=== PATIENT | female | born 1975 | race Caucasian/White ===

== ENCOUNTER 2017-10-11 16:57 | Observation (INO) | payer BC, SELFPAY | END 2017-10-12 15:03 | disposition home or self-care (01) | PROVIDERS: Admitting Provider Family Medicine; Emergency Provider Emergency Medicine; Family Provider Nurse Practitioner Family; Visit Provider Family Medicine | DX: A02.0 Salmonella enteritis (principal); R19.7 Diarrhea, unspecified | CPT/HCPCS: 36415; 74176; 80048; 80053; 83690; 85025; 87507; 94640; 96365; 96375; 96376; 99285; G0378; J1956; J2405 ==

== ENCOUNTER 2018-01-07 11:27 | Day surgery (SDC) | payer BC, SELFPAY ==
[2018-01-01 13:53] VITALS: BMI 34.9
[2018-01-07] VITALS (7 sets, daily range): BP systolic 94–120; BP diastolic 50–76; PULSE 71–77; RESP 18; TEMP 36.2–36.6; O2SAT 96–100
[2018-01-07 12:42] LABS: Urine Pregnancy, HCG Qual. Negative (Negative)
--- NOTE | 2018-01-07 14:30 | P.PCN_ITS ---
[facility] Procedure Note Procedure Note:: Colonoscopy Procedure Report: Colonoscopy with cold snare polypectomy Endoscopist: Jef Blackman II, MD Referring physician: Kita ALDRICH Date of Procedure: January 07, 2018 Equipment: Olympus 180 variable stiffness pediatric colonoscope Sedation: MAC sedation Indication: Mrs. Bautista is a 42-year-old female who is here for diagnostic colonoscopy secondary to presumed colitis. The patient did have a spell of colitis prior to gi and was found to have salmonella which was treated. She did have another spell 2 or 3 weeks ago. This was associated with cramps and mucus. She reports no bright red rectal bleeding, weight loss or family history of colitis or Crohn's disease. She reports no family history of colon cancer. Procedure: Prior to the procedure, a history and physical exam was performed, and patient' s medications and allergies were reviewed. The risks, benefits and alternatives of the sedation and procedure were discussed with the patient. All questions were answered and informed consent was obtained. The patient was brought to the procedure room. Patient identification and proposed procedure were verified by the physician and the nurse. The patient was placed in a left lateral decubitus position and the scope was passed under direct vision. Throughout the procedure, the patient's blood pressure, pulse, and oxygen saturations were monitored continuously. The colonoscopy was accomplished without difficulty. The patient tolerated the procedure well. Findings: On digital rectal examination there was normal rectal tone. There were no external hemorrhoids. The colonoscope was introduced through the anal canal to the rectum and advanced to the cecum. The ileocecal valve and appendiceal orifice were identified. The scope was advanced a short distance into the ileum which appeared grossly normal. The scope was then withdrawn into the colon. The cecum, ascending and transverse colon and mucosa were grossly normal. There were scattered diverticuli throughout the descending and sigmoid colon (LEFT colon). There was a diminutive polyp in the sigmoid colon that was 5 mm and removed via cold snare polypectomy. The rectum itself was normal. Upon retroflexion within the rectum there were grade 1 internal hemorrhoids. Impression: 1. Diminutive sigmoid polyp 2. Left-sided diverticulosis 3. Grade 1 internal hemorrhoids Plan: I do feel that the patient is having spells of low-grade diverticulitis/spastic diverticular disease. We will discuss dietary measures and fiber bowel regimen. I will follow-up the polyp histology. If the polyp is non-adenomatous, she will not require screening/surveillance colonoscopy again for 10 years (age 52) by ACS guidelines.
--- NOTE | 2018-01-07 16:50 | HMH.ANESCL ---
[facility] Anesthesia Checklist - Patient Identification Patient Identification: Arm Band - Structural Data Admitted From: Home Planned Operative Procedure/s: colonoscopy Consent for Planned Operative Procedure(s) Verified: Yes Verified Documents: Surgical Consent, History and Physical - NPO Status Verified Time NPO: 00:00 - Additional verifications Anesthesia Reactions: No - Airway Assessment C-Spine Mobility Assessed: Yes (mp2) TMJ Mobility Assessed: Yes Dentition: Good Dentition - Neurological Assessment Level of Consciousness: Awake, Alert - Anesthesia Plan Anesthesia Risk discussed: Yes Anesthesia Plan: Verified ASA Class: II Anesthesia Type: MAC [facility] Anesthesia HX I have reviewed the patient's past medical history: Yes Medical History: Denies:: Diabetes Mellitus Type 1, Diabetes Mellitus Type 2, Internal Pacemaker, Lung Disease, Seizures Other Medical History: Reports: Other (colitis, left kidney adenoma) Laterality Cases: Bilateral: Carpal Tunnel Release Other Surgeries: Yes: Other (oneyda, btl, right wrist sx). No: Pacemaker
== END 2018-01-07 15:15 | disposition home or self-care (01) ==
PROVIDERS: Family Provider Nurse Practitioner Family; PCP Nurse Practitioner Family; Visit Provider Internal Medicine Gastroenterology
PROC: 0DJD8ZZ Inspection of Lower Intestinal Tract, Via Natural or Artificial Opening Endoscopic (ICD-10-PCS; CPT 45378; principal; 2018-01-07 13:00)
DX: K63.5 Polyp of colon (principal); K57.30 Diverticulosis of large intestine without perforation or abscess without bleeding; K64.0 First degree hemorrhoids
CPT/HCPCS: 45380; 81025

== ENCOUNTER → 2019-11-12 15:15 | Outpatient (CLI) | payer BC, SELFPAY ==
--- NOTE | 2019-11-12 15:20 | XR_ITS ---
PROCEDURE: XR ACUTE ABDOMEN SERIES CLINICAL INDICATION: ABD TENDERNESS COMPARISON: CXRCHP CHEST-AP LAT- [facility] ONLY from 06/08/2015 FINDINGS: There is no acute cardiopulmonary pathology. Postsurgical clips from cholecystectomy are noted. There is a nonspecific gas pattern. There is no free air. Radiopacities in the pelvis may represent bilateral tubal ligation. Left pelvic calcifications likely phleboliths are noted. IMPRESSION: No acute findings. Nonspecific gas pattern. Dictated by: Osman George 11/12/2019 16:15 Electronically signed by Osman George in [facility] 11/12/2019 16:15
== END ==
PROVIDERS: PCP Nurse Practitioner; Visit Provider Nurse Practitioner
DX: R10.819 Abdominal tenderness, unspecified site (principal); Z12.31 Encounter for screening mammogram for malignant neoplasm of breast
CPT/HCPCS: 74021

== ENCOUNTER → 2019-11-27 16:07 | Outpatient (CLI) | payer BC, SELFPAY ==
--- NOTE | 2019-11-27 16:11 | MM_ITS ---
PROCEDURE: MM DIG SCREENING MAMM BI W/CAD CLINICAL INDICATION: SCREENING There is no personal or family history of breast cancer. There has been a previous biopsy left breast for benign disease. COMPARISON: DMDBAV DIG MAMM-DX EROS W/AVWS W/CAD from 02/13/2017 TECHNIQUE: Standard CC and MLO images and 3D Tomosynthesis was obtained. R2 CAD reviewed. FINDINGS: Scattered diffuse fibroglandular densities are seen throughout both breasts. The findings are fairly symmetrical bilaterally., images are helpful in excluding any suspicious abnormality. There are no suspicious microcalcifications. IMPRESSION: Moderate breast density with no suspicious lesions seen BI-RAD Category: 1 Negative FOLLOW-UP: 1YR 1 Year Follow-up (A letter has been sent to the patient regarding results of the study.) Dictated by: Dr. Ronal Mary MD 12/01/2019 09:[address] Ronal Mary MD in [facility] 12/01/2019 09:31
== END ==
PROVIDERS: PCP Nurse Practitioner; Visit Provider Nurse Practitioner
DX: Z12.31 Encounter for screening mammogram for malignant neoplasm of breast (principal)
CPT/HCPCS: 77063; 77067

== ENCOUNTER → 2019-12-01 14:56 | Outpatient (POV) | payer BC, SELFPAY | PROVIDERS: Visit Provider Nurse Practitioner Family | DX: Z00.00 Encounter for general adult medical examination without abnormal findings (principal) ==

== ENCOUNTER → 2020-05-25 14:09 | Outpatient (CLI) | payer BC, SELFPAY ==
--- NOTE | 2020-05-25 14:14 | XR_ITS ---
PROCEDURE: XR SHOULDER RT MIN 2V CLINICAL INDICATION: R SHOULDER PAIN COMPARISON: No exams were available for comparison FINDINGS: No fracture or dislocation. No lytic or blastic change. There is normal mineralization. The joint spaces are well-preserved. No significant degenerative/arthritic changes. No erosive changes evident. Other findings:None. IMPRESSION: No acute findings. Dictated b James Oh MD 05/25/2020 14:36 James Oh MD in [facility] 05/25/2020 14:36
== END ==
PROVIDERS: PCP Nurse Practitioner Family; Visit Provider Nurse Practitioner Family
DX: M25.511 Pain in right shoulder (principal)
CPT/HCPCS: 73030

== ENCOUNTER 2020-06-21 16:00 | Outpatient (RCR) | payer BC, SELFPAY | END 2020-07-22 15:21 | disposition home or self-care (01) | LOC: PT.CARL 16:00 | PROVIDERS: PCP Nurse Practitioner Family; Visit Provider Nurse Practitioner Family | DX: M25.511 Pain in right shoulder (principal) | CPT/HCPCS: 97010; 97012; 97014; 97035; 97110; 97140; 97163; G0283 ==

== ENCOUNTER → 2020-06-23 14:42 | Outpatient (CLI) | payer BC, SELFPAY ==
--- NOTE | 2020-06-23 15:11 | MR_ITS ---
PROCEDURE: MR SHOULDER RT WO CON CLINICAL INDICATION: PAIN IN RIGHT SHOULDER RT SHOULDER PAIN, NO INJURY, PAIN WHEN ARISING ARM ABOVE HEAD, WEAKNESS IN ARM. SYMPTOMS X4-5 MONTHS. PRIOR XRAY 05-25-20 COMPARISON: CR XR SHOULDER RT MIN 2V from 05/25/2020 TECHNIQUE: Routine multiplanar multi echo sequences are performed without gadolinium enhancement. FINDINGS: There are mild hypertrophic changes of the acromioclavicular joint with mild edema at the AC joint. The supraspinatus, infraspinatus, teres minor and subscapularis tendons have an unremarkable appearance. No obvious labral tear. The bicipital tendon is in place. No significant subacromial stenosis evident IMPRESSION: 1. No evidence of rotator cuff tear. 2. Osteoarthritic changes with hypertrophy of the acromioclavicular joint Dictated by: James Oh MD 06/24/2020 17:20 James Oh MD in [facility] 06/24/2020 17:20
== END ==
PROVIDERS: PCP Nurse Practitioner Family; Visit Provider Nurse Practitioner Family
DX: M25.511 Pain in right shoulder (principal)
CPT/HCPCS: 73221

== ENCOUNTER → 2020-07-27 08:23 | Outpatient (CLI) | payer BC, SELFPAY ==
--- NOTE | 2020-07-27 08:26 | XR_ITS ---
PROCEDURE: XR SHOULDER RT MIN 2V CLINICAL INDICATION: right shoulder pain COMPARISON: CR XR SHOULDER RT MIN 2V from 05/25/2020 FINDINGS: No fracture or dislocation. No lytic or blastic change. There is normal mineralization. There is minimal spurring along the undersurface of the acromioclavicular joint. The glenohumeral joint has an unremarkable appearance. No fracture or dislocation. No lytic or blastic change. Other findings:None. IMPRESSION: Minimal acromioclavicular arthropathy Dictated by: James Oh MD 07/27/2020 14:25 James Oh MD in [facility] 07/27/2020 14:25
== END ==
PROVIDERS: PCP Nurse Practitioner Family; Visit Provider Orthopaedic Surgery
DX: M25.511 Pain in right shoulder (principal)
CPT/HCPCS: 73030

== ENCOUNTER 2020-09-13 17:00 | Outpatient (RCR) | payer BC, SELFPAY ==
--- NOTE | 2020-08-09 17:34 | HMH.PTOPEV ---
PT Outpatient Evaluation Rehab PT Outpatient Evaluation Start: 08/09/20 16:47 Freq: Status: Active Protocol: Document 08/09/20 16:47 [email or web address] (Rec: 08/09/20 17:34 PDESEROUX [id number]) Electronically Signed By Roberth Manning, PT 08/09/20 16:47 Outpatient Therapy Subjective History Subjective History Pt. is a 45 year old female who presents to Outpatient PT clinic w/ complaints of chronic and activity dependent R shldr. P! of insidious onset 3-5 months ago. Pt. reports some symptom relief w/ previous Physical Therapy. Pt. however reports a lot of symptom relief post injections x 2 in R shldr. Pt. reports MD wants 6-8 wks. of Physical Therapy, then possible surgery if no symptom relief w/ PT. Pt. RTMD . Recent diagnostic imaging positive for minimal acromioclavicular arthropathy. Pt. also reports she is currently still on work(desk job at ) restrictions(no lifting >10#, no elevating arm ) at this time. Current medications include Tylenol PRN. PMH includes bilateral Carpal Tunnel surgeries, Cholecystectomy, tubal ligation, Diverticulosis, Gastritis, and Colitis. Chief Complaint Pain Symptom Type Ache,Dull Symptoms Relieved By Rest/Positioning,Ice, Prescription Meds Symptoms Aggravated By Lifting Prior Functional Limitations None Current Functional Limitations Reaching,Lifting,Housework, Dressing,Desk Work/Reading, Driving,Sleeping Symptom Description Activity Dependent Level of pain today (0-10) 2 Pain scale - at its best (0-10) 0 Pain scale - at its worst (0-10) 5 Shoulder/Elbow Eval Shoulder Objective Measurements Palpation Tenderness tenderness shoulder exam standard right tenderness over the bicipital tendon right shoulder exam standard tenderness over the SA bursa shoulder right exam standard Shoulder Palpation Findings Tenderness Shoulder Palpation Ove
== END 2020-09-20 17:04 | disposition home or self-care (01) ==
LOC: PT.CARL 17:00
PROVIDERS: PCP Nurse Practitioner Family; Visit Provider Orthopaedic Surgery
DX: M75.41 Impingement syndrome of right shoulder; M25.511 Pain in right shoulder; M19.011 Primary osteoarthritis, right shoulder
CPT/HCPCS: 97010; 97014; 97035; 97110; 97163; G0283

== ENCOUNTER → 2021-05-30 07:46 | Outpatient (CLI) | payer BC, SELFPAY ==
--- NOTE | 2021-05-30 08:01 | US_ITS ---
PROCEDURE: US ABDOMEN LIMITED CLINICAL INDICATION: ABD PAIN,CONSTIPATION,DIARRHEA COMPARISON: No exams were available for comparison FINDINGS: PANCREAS: Unremarkable. No obvious mass or abnormal fluid collection. No ductal dilatation LIVER: No focal liver lesions demonstrated. Homogeneous echogenicity. No intrahepatic biliary ductal dilatation evident. There is appropriate direction of blood flow within a non dilated portal vein RIGHT KIDNEY: Unremarkable. Normal size and echogenicity. No hydronephrosis GALLBLADDER: Status post cholecystectomy. Common bile duct normal at 3 mm. IMPRESSION: Status post cholecystectomy otherwise negative Dictated by: James Oh MD 05/30/2021 10:24 James Oh MD in [facility] 05/30/2021 10:24
[2021-05-30 09:00] LABS: Basophils # 0.1 K/mm3 (0-0.2); Eosinophils # 0.3 K/mm3 (0.0-0.4); Hematocrit 38.8 % (37.0-47.0); Hemoglobin 13.2 g/dL (12.2-16.2); Lymphocytes # 2.9 K/mm3 (0.7-4.5); Lymphocytes % 43.8 % (10-50); Mean Corpuscular Hemoglobin 28.1 pg (27.0-31.2); Mean Corpuscular Volume 82.8 fl (81-99); Mean Platelet Volume 8.3 fl (7.4-10.4); Monocytes # 0.4 K/mm3 (0.1-1.0); Monocytes % 5.6 % (1.7-9.3); Neutrophils % 44.7 % (37.0-80.0); Platelet Count 235 K/mm3 (142-424); Red Blood Count 4.68 M/mm3 (4.20-5.40); Red Cell Distribution Width 13.5 % (11.5-17.5); White Blood Count 6.7 K/mm3 (4.8-10.8)
[2021-05-30 09:35] LABS: Chloride 107 mmol/L (98-107)
[2021-05-30 09:36] LABS: Potassium 4.3 mmoL/L (3.5-5.1); Sodium 138 mmol/L (136-145)
[2021-05-30 09:38] LABS: Alanine Aminotransferase 12 U/L (12-78); Alkaline Phosphatase 65 U/L (38-126); Amylase 32 U/L (30-110); Anion Gap 11.3 mEq/L (5-15); Aspartate Amino Transferase 17 U/L (14-36); Bilirubin,Total 0.3 mg/dl (0.2-1.3); Blood Urea Nitrogen 12 mg/dl (7-17); Calcium 8.8 mg/dl (8.4-10.2); Carbon Dioxide 24 mmol/L (22.0-30.0); Estimated Glomerular Filt Rate 109 ml/min (>60); GFR (African American) 131 ML/MIN (>60); Glucose 99 mg/dl (74-100)
[2021-05-30 09:39] LABS: Albumin Level 4.1 g/dl (3.5-5.0); Globulin 2.1 g/dL (1.3-3.2); Lipase 95 U/L (23-300); Total Protein,Serum 6.2 g/dl (6.3-8.2)
== END ==
LOC: RAD 07:46
PROVIDERS: PCP Nurse Practitioner Family; Visit Provider Nurse Practitioner Family
DX: R10.11 Right upper quadrant pain (principal); R10.13 Epigastric pain; K59.09 Other constipation; R19.7 Diarrhea, unspecified; R14.0 Abdominal distension (gaseous); R11.0 Nausea
CPT/HCPCS: 36415; 76705; 80053; 82150; 83690; 85025

== ENCOUNTER → 2021-08-25 08:29 | Outpatient (CLI) | payer BC, SELFPAY ==
[2021-08-25 09:31] LABS: Anion Gap 10.2 mEq/L (5-15); Blood Urea Nitrogen 7 mg/dl (7-17); Calcium 8.9 mg/dl (8.4-10.2); Carbon Dioxide 27 mmol/L (22.0-30.0); Chloride 106 mmol/L (98-107); Estimated Glomerular Filt Rate 134 ml/min (>60); GFR (African American) 162 ML/MIN (>60); Glucose 111 mg/dl (74-100); Potassium 4.2 mmoL/L (3.5-5.1); Sodium 139 mmol/L (136-145)
--- NOTE | 2021-08-25 09:49 | CT_ITS ---
PROCEDURE: CT ABDOMEN W CON CLINICAL HISTORY: UPPER ABD PAIN COMPARISON: CT ABDPELW/O CT ABD PELVIS W/O CONTRAST from 10/11/2017 TECHNIQUE: 75 mL Isovue 370 Axial images obtained with sagittal and coronal reformats. All CT scans at the facility use one or more dose reduction, viz: automated exposure control, ma/kV adjustment per patient size (including targeted exams where dose is matched to indication, i.e. head), or iterative reconstruction technique. FINDINGS: Lung bases are clear. Prior cholecystectomy. The spleen, pancreas, and right adrenal gland are unremarkable. Small hypodensity is present in the central aspect of the liver in the right hepatic lobe at 8 mm nonspecific. The liver has an otherwise unremarkable appearance. There is a 17 mm left adrenal nodule. This nodule was present on 10/11/2017 with an average density on the unenhanced exam of negative arrieta Hounsfield units. The nodule is slightly larger. Previously the nodule measured 12 mm in AP dimension. No renal or ureteral calculi. Mildly prominent left renal pelvis. No renal mass. No intestinal obstruction or free air. No evidence of appendicitis. No acute bony findings. IMPRESSION: 1. No acute finding. 2. Slightly enlarging left adrenal nodule. Previously unenhanced exam suggested this represents an adenoma. 3. 8 mm hypodense lesion of the right hepatic lobe centrally. This is nonspecific. Three month follow-up with hemangioma protocol without and with contrast suggested and will also better evaluate the left adrenal nodule. Dictated by: James Oh MD 08/26/2021 09:43 James Oh MD in [facility] 08/26/2021 09:43
[2021-08-26 16:12] LABS: H. pylori Breath Test Negative (Negative)
== END ==
PROVIDERS: PCP Nurse Practitioner Family; Visit Provider Nurse Practitioner Family
DX: R10.10 Upper abdominal pain, unspecified (principal)
CPT/HCPCS: 36415; 74160; 80048; 83013; Q9967

== ENCOUNTER 2021-09-20 12:45 | Emergency (ER) | payer BC, SELFPAY ==
[2021-09-20 14:10] VITALS: BP 0/0; PULSE 0; RESP 0; TEMP -17.7; TEMP 0
== END 2021-09-20 14:12 | disposition left against medical advice (07) ==
LOC: UTC 13:22
PROVIDERS: Emergency Provider Nurse Practitioner Family; PCP Nurse Practitioner Family
DX: Z53.21 Procedure and treatment not carried out due to patient leaving prior to being seen by health care provider (principal)

== ENCOUNTER → 2022-01-04 13:44 | Outpatient (CLI) | payer BC, SELFPAY ==
[2022-01-04 15:23] VITALS: BMI 33.7
== END ==
PROVIDERS: PCP Nurse Practitioner Family; Visit Provider Nurse Practitioner Family
DX: Z71.3 Dietary counseling and surveillance (principal); K21.9 Gastro-esophageal reflux disease without esophagitis
CPT/HCPCS: 97802

== ENCOUNTER 2023-06-11 11:17 | Emergency (ER) | payer BC, SELFPAY ==
[2023-06-11 11:33] VITALS: BP 110/74; PULSE 100; RESP 17; TEMP 36.7; O2SAT 95; BMI 34.9
--- NOTE | 2023-06-11 11:46 | PC.NURSE ---
labs sent at this time.
[2023-06-11 11:56] LABS: Microscopic, Urine URINE MICROSCOPIC (MICROSCOPIC)
[2023-06-11 12:02] LABS: Basophils % 0.4 % (0.1-2.0); Eosinophils # 0.3 K/mm3 (0.0-0.4); Eosinophils % 3.8 % (0.1-12.0); Hematocrit 40.9 % (37.0-47.0); Hemoglobin 13.5 g/dL (12.2-16.2); Lymphocytes % 35.3 % (10-50); Mean Corpuscular HGB Conc 32.9 g/dL (31.8-35.4); Mean Corpuscular Hemoglobin 27.8 pg (27.0-31.2); Mean Corpuscular Volume 84.4 fl (81-99); Mean Platelet Volume 8.5 fl (7.4-10.4); Monocytes # 0.4 K/mm3 (0.1-1.0); Monocytes % 4.4 % (1.7-9.3); Neutrophils # 4.7 K/mm3 (1.8-7.8); Platelet Count 273 K/mm3 (142-424); Red Blood Count 4.85 M/mm3 (4.20-5.40); Red Cell Distribution Width 13.2 % (11.5-17.5); White Blood Count 8.4 K/mm3 (4.8-10.8)
[2023-06-11 12:03] LABS: Chloride 107 mmol/L (98-107); Sodium 139 mmol/L (136-145)
[2023-06-11 12:04] LABS: Potassium 3.9 mmoL/L (3.5-5.1)
[2023-06-11 12:05] LABS: Appearance,Urine CLEAR (Clear); Bilirubin,Urine Negative (Negative); Blood, Urine Negative (Negative); Color,Urine YELLOW (Yellow); Glucose,Urine (UA) Negative (Negative); Ketones,Urine Negative (Negative); Leukocyte Esterase,Urine Negative (Negative); Nitrate,Urine Negative (Negative); Protein,Urine Negative (Negative); Specific Gravity, Urine 1.025 (1.005-1.030); Urobilinogen,Urine 0.2 EU/dl (0.2)
[2023-06-11 12:06] LABS: Alanine Aminotransferase 22 U/L (12-78); Alkaline Phosphatase 98 U/L (38-126); Aspartate Amino Transferase 26 U/L (14-36); Bilirubin,Total 0.3 mg/dl (0.2-1.3); Blood Urea Nitrogen 8 mg/dl (7-17); Creatinine Clearance Estimated 176 mL/min (50-200); Estimated Glomerular Filt Rate 108 ml/min (>60); GFR (African American) 130 ML/MIN (>60)
[2023-06-11 12:07] LABS: Urine Pregnancy, HCG Qual. Negative (Negative)
[2023-06-11 12:07] LABS: Albumin Level 4.1 g/dl (3.5-5.0); Albumin/Globulin Ratio 1.6 (1.1-1.8); Anion Gap 13.9 mEq/L (5-15); Calcium 9.6 mg/dl (8.4-10.2); Carbon Dioxide 22 mmol/L (22.0-30.0); Globulin 2.6 g/dL (1.3-3.2); Glucose 114 mg/dl (74-100); Total Protein,Serum 6.7 g/dl (6.3-8.2)
--- NOTE | 2023-06-11 12:08 | CT_ITS ---
FINAL REPORT TECHNIQUE: After the administration of oral and intravenous contrast, axial images were obtained through the abdomen and pelvis by computed tomography. The study was performed with techniques to keep radiation dose as low as reasonably achievable, (ALARA). Individual dose reduction techniques using automated exposure control or adjustment of mA and/or kV according to the patient's size were employed. CLINICAL HISTORY: lower abd pain, diarrhea, nausea COMPARISON: None FINDINGS: Abdomen: The lung bases are clear. The liver parenchyma is homogeneous. The gallbladder is surgically absent. The spleen, pancreas, and kidneys appear unremarkable. The left adrenal gland is enlarged, measuring 2.1 x 1.7 cm in size, with a low-attenuation lesion, likely adenoma. The right adrenal gland is normal. The aorta is normal in caliber. There is no free fluid or adenopathy. Pelvis: The appendix is is air-filled and unremarkable. The urinary bladder is unremarkable. There is inflammatory reaction surrounding the proximal sigmoid colon with associated mucosal thickening, most compatible with either acute diverticulitis or colitis, best seen in axial images #98 through 103. A small amount of free fluid is present in the pelvis. IMPRESSION: Inflammatory reaction and mucosal thickening in the proximal sigmoid colon, most compatible with either acute diverticulitis or colitis. Left adrenal gland enlargement, likely adenoma. Small amount of free fluid present in the pelvis. Reviewed, Interpreted and Dictated by Estrada Dean MD Transcribed by Vero Bailey Authenticated and [facility]
[2023-06-11 12:30] VITALS: BP 108/72; PULSE 81; RESP 20; O2SAT 96
--- NOTE | 2023-06-11 12:46 | PC.NURSE ---
PT GONE TO CT
--- NOTE | 2023-06-11 12:51 | PC.NURSE ---
pt back from ct scan
[2023-06-11 12:56] LABS: Lipase 37 U/L (23-300)
--- NOTE | 2023-06-11 12:57 | HMH.EDGENADL ---
Discharge Plan Disposition Patient Disposition: Home, Self-Care Condition: Good Prescriptions Prescriptions: New ondansetron 4 mg tablet,disintegrating 4 mg PO Q8H PRN (Reason: nausea and vomiting) 4 Days Qty: 12 0RF naproxen 500 mg tablet 500 mg PO BID PRN (Reason: pain) Qty: 20 0RF oxycodone 5 mg tablet 5 mg PO Q8H PRN (Reason: pain) Qty: 10 0RF Referrals Follow up/Referrals: Rosie Rodriguez [Primary Care Provider] - See instructions Activity Restrictions/Add. Instructions Additional Instructions/Restrictions: You were evaluated in the emergency department today and diagnosed with diverticulitis. At this time, there is no evidence of complication such as abscess or perforation. Given this, I do not feel that antibiotics are indicated. I am providing you with prescriptions for nausea medication as well as medication for pain. Eat a bland diet and let your bowels rest for the next 24 to 48 hours. Follow-up closely with your primary care provider over the next 3 days to ensure that you are doing better. Return to the emergency department for any new or worsening symptoms, such as worsening pain, fever, intractable vomiting, or other concerns. Clinical Impressions Clinical Impression: Diverticulitis Instructions Patient Instructions: DI for Diverticulitis, DI for Acute Abdominal Pain Discharge ED Provider: Skye [facility] Adult HPI General Chief complaint: Abdominal Pain Stated complaint: abd and back pain, diarrhea Time Seen by Provider: 06/11/23 11:57 Mode of Arrival: Ambulatory Source of Information: Patient Limitations: No Limitations Description of Symptoms (Recalled from ER Triage Doc. by RN): 48 yo F presents to ED with c/o lower abdominal pain, lower back pain, nausea, diarrhea. pt reports headache that began last night. other symptoms ongoing for the past 4 days. History of Present Illness HPI narrative: This patient is a 48-year-old female who reports a history of diverticulosis presenting to the emergency department for evaluation with concern for lower abdominal pain, lower back pain, nausea, and diarrhea. The pain is nonradiating. It is cramping. She states that it is been going on for approximately 4 days now. She also notes a headache that started last night, so she is concerned that she is dehydrated. She notes a history of chronic gastrointestinal issues, for which she takes multiple medications and reports compliance with. She states that this feels outside of the room of her typical gastrointestinal issues. Nothing seems to make her symptoms better or worse. She denies any fevers, chills, hematochezia, melena, dysuria, polyuria, hematuria, or other concerns. Related Data Previous Rx's Medication Instructions Recorded naproxen 500 mg tablet 500 mg PO BID PRN pain #20 tabs 06/11/23 ondansetron 4 mg disintegrating 4 mg PO Q8H PRN nausea and 06/11/23 tablet vomiting 4 days #12 tabs oxycodone 5 mg tablet 5 mg PO Q8H PRN pain #10 tabs 06/11/23 Allergies Allergy/AdvReac Type Severity Reaction Status Date / Time cephalexin [CEPHALEXIN] Allergy Mild Verified 09/14/20 09:32 From [facility] Allergy Unknown Uncoded 09/14/20 09:32 [facility] Disclaimer: The information contained in this section may have been updated after the patient was seen, as this information can be updated by other users. Social History Smoking Status: Current every day smoker alcohol intake: never current occupational status: employed Travel in the last 8 weeks: None caffeine: Yes ROS Obtained: Yes All systems reviewed & no additional complaints except as documented Physical Exam General General appearance: alert and in no apparent distress Head Head exam: atraumatic and normocephalic Eye Eye exam: Present normal appearance, PERRL and EOMI ENT ENT exam: Present normal exam, normal oropharynx, mucous membranes moist and normal exte
[2023-06-11 13:00] VITALS: BP 111/68; PULSE 68; O2SAT 96
[2023-06-11 13:30] VITALS: BP 91/57; PULSE 62; O2SAT 97
--- NOTE | 2023-06-11 13:49 | PC.NURSE ---
Attempting PO challenge per
[2023-06-11 13:54] LABS: Bacteria,Urine Trace /lpf; Squamous Epithelial Cell,Urine Occasional #/hpf (0-5); WBC,Urine Occasional #/hpf (0-3)
[2023-06-11 14:00] VITALS: BP 107/70; PULSE 67; O2SAT 99
--- NOTE | 2023-06-11 14:13 | PC.NURSE ---
PO challenge for pt at this time, ilda mist given to pt.
[2023-06-11 15:04] VITALS: BP 118/75; PULSE 81; RESP 17; TEMP 36.8; O2SAT 97
== END 2023-06-11 15:05 | disposition home or self-care (01) ==
PROVIDERS: Emergency Provider Emergency Medicine; PCP Nurse Practitioner Family
DX: K57.92 Diverticulitis of intestine, part unspecified, without perforation or abscess without bleeding (principal); R10.30 Lower abdominal pain, unspecified; R51.9 Headache, unspecified; F17.200 Nicotine dependence, unspecified, uncomplicated
CPT/HCPCS: 74177; 80053; 81001; 81025; 83690; 85025; 96361; 96374; 96375; 99285; J2405; Q9967

== ENCOUNTER 2024-05-17 01:51 | Emergency (ER) | payer OTHER, SELFPAY ==
[2024-05-17] VITALS (8 sets, daily range): BP systolic 109–145; BP diastolic 70–94; PULSE 80–126; RESP 16–18; TEMP 37.2; O2SAT 93–97; BMI 33.3
--- NOTE | 2024-05-17 01:57 | CT_ITS ---
PROCEDURE INFORMATION: Exam: CT Abdomen And Pelvis With Contrast Exam date and time: 05/17/2024 2:47 AM Age: 49 years old Clinical indication: Abdominal pain; Additional info: Abd pain R side, HX diverticulitis, 30x diarrhea TECHNIQUE: Imaging protocol: Computed tomography of the abdomen and pelvis with contrast. Radiation optimization: All CT scans at this facility use at least one of these dose optimization techniques: automated exposure control; mA and/or kV adjustment per patient size (includes targeted exams where dose is matched to clinical indication); or iterative reconstruction. Contrast material: ISOVUE; Contrast volume: 75 ml; Contrast route: IV; COMPARISON: CT ABDOMEN PELVIS W CON 06/11/2023 12:18 PM FINDINGS: Lungs: Lung bases are clear as visualized. Heart: Base of heart is unremarkable as visualized. Liver: Normal. No mass. Gallbladder and biliary ducts: Status post cholecystectomy. Pancreas: Normal. No ductal dilation. Spleen: Normal. No splenomegaly. Adrenal glands: Stable left adrenal nodule. Kidneys and ureters: Normal. No hydronephrosis. Stomach and bowel: Regions of liquid stool within the colon consistent with patient's provided history. Ascending colonic anterior wall lipoma (series 3, image 56). Cecal and ascending colonic thickening no significant surrounding inflammatory change. Diverticulosis without convincing evidence of diverticulitis. Appendix: No evidence of appendicitis. Intraperitoneal space: Unremarkable. No free air. No significant fluid collection. Vasculature: Minimal calcified atherosclerotic disease of the infrarenal abdominal aorta. Lymph nodes: Unremarkable. No enlarged lymph nodes. Urinary bladder: Unremarkable as visualized. Reproductive: Unremarkable as visualized. Bones/joints: Unremarkable. No acute fracture. Soft tissues: Unremarkable. IMPRESSION: 1. Findings suggest mild cecal and ascending colitis. Correlate clinically. 2. Liquid stool within the colon consistent with provided patient history. 3. Additional nonacute findings as above.
[2024-05-17] MEDS: KETOROLAC 30MG/ML VIAL 15 MG IV (02:05)
--- NOTE | 2024-05-17 02:05 | HMH.EDGENADL ---
Discharge Plan Disposition Patient Disposition: Home, Self-Care Condition: Fair Prescriptions Prescriptions: New levofloxacin 500 mg tablet 500 mg PO DAILY 5 Days Qty: 5 0RF No Action ondansetron 4 mg tablet,disintegrating 4 mg PO Q8H PRN (Reason: nausea and vomiting) 4 Days Qty: 12 0RF naproxen 500 mg tablet 500 mg PO BID PRN (Reason: pain) Qty: 20 0RF oxycodone 5 mg tablet 5 mg PO Q8H PRN (Reason: pain) Qty: 10 0RF Referrals Follow up/Referrals: Rosie Rodriguez [Primary Care Provider] - See instructions Activity Restrictions/Add. Instructions Additional Instructions/Restrictions: You were evaluated in the ER. You are appropriate for discharge at this time. Take the prescribed antibiotics as directed, do not skip doses, do not stop taking them early. Wash your hands thoroughly and frequently to avoid spread of infection. Drink plenty of water and other fluids to maintain hydration. Make an appointment with your primary care physician for reevaluation on Sunday. Return to the ER with new, worsening, or otherwise concerning symptoms. Clinical Impressions Clinical Impression: Campylobacter diarrhea, Colitis Instructions Patient Instructions: DI for Acute Abdominal Pain Print Language Print Language: Nepali Discharge ED Provider: Darrion Noel General Adult HPI General Chief complaint: Abdominal Pain Stated complaint: 30-35 BMs in last 24 hrs,weakness, nausea, chills Time Seen by Provider: 05/17/24 01:56 History of Present Illness HPI narrative: 49-year-old female with history of colitis, previous right-sided diverticulitis presents to the ER for concerns of right-sided abdominal pain, more than 30 episodes of diarrhea in the last 24 hours. She describes these as nonbloody, nonmelanotic. She denies nausea, vomiting, chest pain, she states she had chills and felt feverish at home but did not take her temperature. She denies taking any medications prior to arrival. Patient is worried she is dehydrated. No dysuria or hematuria. No other associated symptoms at this time. Related Data Previous Rx's ?Medication ?Instructions ?Recorded naproxen 500 mg tablet 500 mg PO BID PRN pain #20 tabs 06/11/23 ondansetron 4 mg disintegrating 4 mg PO Q8H PRN nausea and 06/11/23 tablet vomiting 4 days #12 tabs oxycodone 5 mg tablet 5 mg PO Q8H PRN pain #10 tabs 06/11/23 levofloxacin 500 mg tablet 500 mg PO DAILY 5 days #5 tabs 05/17/24 Allergies Allergy/AdvReac Type Severity Reaction Status Date / Time cephalexin [CEPHALEXIN] Allergy Mild Verified 09/14/20 09:32 From KEFLEX Allergy Unknown Uncoded 09/14/20 09:32 [facility] Disclaimer: The information contained in this section may have been updated after the patient was seen, as this information can be updated by other users. Social History Smoking Status: Former smoker alcohol intake: never current occupational status: employed Travel in the last 8 weeks: None caffeine: Yes ROS Obtained: Yes All systems reviewed & no additional complaints except as documented Constitutional Constitutional: Reports chills, Reports fever(s), Denies headache(s) and Denies weakness Eyes Eyes: Denies change in vision ENT Ears, Nose, Mouth, and Throat: Denies dizziness, Denies headache(s), Denies nasal congestion and Denies sore throat Cardiovascular Cardiovascular: Denies chest pain, Denies dyspnea and Denies leg edema Respiratory Respiratory: Denies cough and Denies dyspnea Gastrointestinal Gastrointestingal: Reports abdominal pain and diarrhea; Denies constipation, nausea or vomiting Genitourinary Female Genitourinary: Denies dysuria Musculoskeletal Musculoskeletal: Denies arthralgias, Denies myalgias, Denies numbness and Denies tingling Integumentary/Breasts Skin/Breast: Denies change in pigmentation Neurologic Neurologic: Denies dizziness, Denies headache(s), Denies numbness, Denies tingling and Denies weakness Physical Exam General General appearance: alert and in no apparent distress Head Head exam: atraumatic and normocephalic Eye Eye exam: Present PERRL and EOMI ENT ENT exam: Present mucous membranes moist Neck Neck exam: Present normal inspection and full ROM Chest Chest inspection: Present symmetric chest wall rise Respiratory Respiratory exam: Absent respiratory distress or stridor Cardiovascular Cardiovascular exam: Present regular rate and normal rhythm Abdominal Exam Abdominal exam: Present soft and tenderness (Right mid abdomen, right upper quadrant ); Absent distention, guarding or rebound Abdominal tenderness: Present mild Extremities Exam Extremities exam: Present full ROM Neurological Exam Neurological exam: Present alert and oriented X3; Absent motor sensory deficit Psychiatric Psychiatric exam: Present normal affect and normal mood Skin Skin exam: Present warm and dry Medical Decision Making Medical Records Medical records reviewed: Yes I reviewed the patient's medical records. MR Comment: Review of previous records demonstrates patient was seen in our ER approximately 1 year ago for diverticulitis. Review of labs from this time demonstrated no leukocytosis, no kidney dysfunction. Patient has also been seen by orthopedics for right AC joint arthritis. Julius Inquiry Pt receiving controlled substance: No Vital Signs: 05/17/24 01:54 05/17/24 02:00 05/17/24 02:30 Temperature 99 F Temperature Source Oral Pulse Rate 126 H 100 H Pulse Rate [Left] 120 H Respiratory Rate 18 Blood Pressure 137/86 127/76 Blood Pressure [Right Arm] 145/94 H Blood Pressure Mean [Right Arm] 111 Blood Pressure Source [Right Arm] Automatic Cuff Blood Pressure Position [Right Arm] Sitting 02 Sat by Pulse Oximetry 97 97 94 L Oxygen Delivery Method Room Air 05/17/24 03:00 Temperature Temperature Source Pulse Rate 86 Pulse Rate [Left] Respiratory Rate Blood Pressure 122/71 Blood Pressure [Right Arm] Blood Pressure Mean [Right Arm] Blood Pressure Source [Right Arm] Blood Pressure Position [Right Arm] 02 Sat by Pulse Oximetry 95 Oxygen Delivery Method Lab Data Lab Results 05/17/24 02:09: WBC 14.6 H, RBC 4.85, Hgb 13.7, Hct 41.6, MCV 85.8, MCH 28.2, MCHC 32.9, RDW 14.0, Plt Count 237, MPV 8.4, Neut % (Auto) 85.2 H, Lymph % (Auto) 9.3 L, [place] % (Auto) 3.5, Eos % (Auto) 1.3, Baso % (Auto) 0.6, Neut # (Auto) 12.5 H, Lymph # (Auto) 1.4, [place] # (Auto) 0.5, Eos # (Auto) 0.2, Baso # (Auto) 0.1, Total Counted 100, Neutrophils % (Manual) 82 H, Lymphocytes % (Manual) 13, Monocytes % (Manual) 5, Platelet Estimate Normal, RBC Morphology Normal, Sodium 136, Potassium 3.8, Chloride 107, Carbon Dioxide 20 L, Anion Gap 12.8, BUN 8, Creatinine 0.70, Estimated Creat Clear 142, Estimated GFR 90, Est GFR ( Amer) 109, Glucose 145 H, Lactate 1.0, Calcium 9.3, Total Bilirubin 0.5, AST 24, ALT 29, Alkaline Phosphatase 100, Total Protein 7.0, Albumin 4.5, Globulin 2.5, Albumin/Globulin Ratio 1.8, Serum HCG, Qual Negative 05/17/24 02:20: Stl Aeromonas (PCR) Not detected, Stl C. cayetanensis PCR Not detected, Stool Rotavirus (PCR) Not detected, Stl Adenov F 40/41 PCR Not detected, Stool Astrovirus (PCR) Not detected, Stool Campylobacter PCR Detected A, Stl C.difficile Tox PCR Not detected, Stool Cryptosporidium PCR Not detected, Stl E.coli Shiga Tox PCR Not detected, Stool E coli O157 PCR Not detected, Stl Enterotoxigenic E PCR Not detected, Stool EPEC (PCR) Detected A, Stool EAEC (PCR) Not detected, Stl E. histolytica PCR Not detected, Stool Giardia Lamblia PCR Not detected, Stool Salmonella PCR Not detected, Stool Sapovirus (PCR) Not detected, Stl P. shigelloides PCR Not detected, Stl Shigella/EIEC PCR Not detected, St Y.enterocolitica PCR Not detected, Stool Vibrio (PCR) Not detected, Stl Vibrio cholerae PCR Not detected, Stl Norovirus GI/GII PCR Not detected, SARS-CoV-2 (PCR) Not detected, Influenza A Untype (PCR) Not detected, Influenza Type B (PCR) Not detected 05/17/24 02:09 05/17/24 02:09 Orders (Tests/Meds): ED MEDICATIONS Generic Name Dose Route Start Last Admin Trade Name Freq PRN Reason Stop Dose Admin Sodium Chloride 10 ml 05/17/24 03:01 05/17/24 03:02 Sodium Chloride 0.9% 10ml Syr (Rad Only) IV 06/16/24 03:00 10 ml NEEDED PRN Administration Maintain IV Site Discontinued Medications Generic Name Dose Route Start Last Admin Trade Name Freq PRN Reason Stop Dose Admin Lactated Ringer's 1,000 mls @ 999 mls/hr 05/17/24 02:15 05/17/24 03:57 Lactated Ringer's 1000 Ml Bag IV 05/17/24 04:15 999 mls/hr .Q1H1M ODRIS Administration Iopamidol 75 ml 05/17/24 03:01 05/17/24 03:01 Iopamidol-370 (76%);100ml Bottle IV 05/17/24 03:02 75 ml ONCE ONE Administration Ketorolac Tromethamine 15 mg 05/17/24 01:57 05/17/24 02:05 Ketorolac 30mg/Ml Vial IV 05/17/24 01:58 15 mg ONCE ONE Administration Levofloxacin 500 mg 05/17/24 04:27 05/17/24 04:35 Levofloxacin 500mg Tab PO 05/17/24 04:28 500 mg ONCE ONE Administration ORDERS Category Date Time Status CT abdomen pelvis w con Stat Cat Scan 05/17/24 01:57 Completed CBC w/Auto Diff [Complete Blood Count Auto Diff] Stat Lab 05/17/24 02:09 Completed CMP [Comprehensive Metabolic Panel] Stat Lab 05/17/24 02:09 Completed Diarrhea 6-11 Panel, Cdiff PCR Stat Lab 05/17/24 02:20 Completed Lactic Acid Stat Lab 05/17/24 02:09 Completed Rapid PCR Covid and Flu A/B Stat Lab 05/17/24 02:20 Completed Serum [HCG Qualitative, Serum] Stat Lab 05/17/24 02:09 Completed Medical Decision Narrative: In summary, this 49-year-old female presents to the emergency department today with right side abdominal pain, more than once per hour episodes of diarrhea for the last 24 hours. On initial evaluation patient is hemodynamically stable, though tachycardic, afebrile, tenderness to palpation of the right mid and right upper quadrant abdomen without rebound or guarding, nonacute abdomen, no flank pain, remainder of exam benign. Differential diagnosis includes but is not limited to viral syndrome, diverticulosis, diverticulitis, colitis, infectious diarrhea, considered urinary tract infection, electrolyte abnormality, dehydration, kidney dysfunction. Based on these concerns, I ordered serum labs, CT imaging, urinalysis, diarrhea panel. Patient received IV fluids, Toradol for treatment. Labs personally reviewed demonstrate mild leukocytosis, no anemia, platelets normal, CMP with no actionable abnormalities, no findings of kidney or liver dysfunction, diarrhea panel notable for Campylobacter and enteropathogenic E. coli. CT imaging personally interpreted demonstrate findings of colitis, see radiology read for final interpretation.. On reassessment patient has had improvement of symptoms. She received dose of levofloxacin in the ER for treatment of infectious diarrhea. This was also prescribed. Patient was given instructions on symptomatic management, follow up instructions, and return precautions for the emergency department. Patient indicated understanding and was discharged in stable condition. Critical Care Critical Care Time Critical Care Time: No
[2024-05-17] MEDS: LACTATED RINGERS 1000ML 1,000 ML 999 ML IV ×2 (02:07→03:57)
[2024-05-17 02:20] LABS: Basophils # 0.1 K/mm3 (0-0.2); Basophils % 0.6 % (0.1-2.0); Eosinophils # 0.2 K/mm3 (0.0-0.4); Eosinophils % 1.3 % (0.1-12.0); Hematocrit 41.6 % (37.0-47.0); Hemoglobin 13.7 g/dL (12.2-16.2); Lymphocytes # 1.4 K/mm3 (0.7-4.5); Lymphocytes % 9.3 % (10-50); Mean Corpuscular HGB Conc 32.9 g/dL (31.8-35.4); Mean Corpuscular Hemoglobin 28.2 pg (27.0-31.2); Mean Corpuscular Volume 85.8 fl (81-99); Mean Platelet Volume 8.4 fl (7.4-10.4); Monocytes # 0.5 K/mm3 (0.1-1.0); Monocytes % 3.5 % (1.7-9.3); Neutrophils # 12.5 K/mm3 (1.8-7.8); Neutrophils % 85.2 % (37.0-80.0); Platelet Count 237 K/mm3 (142-424); Red Blood Count 4.85 M/mm3 (4.20-5.40); White Blood Count 14.6 K/mm3 (4.8-10.8)
[2024-05-17 02:22] LABS: MANUAL DIFFERENTIAL MANUAL DIFFERENTIAL (MANUAL DIFF)
[2024-05-17 02:26] LABS: Albumin Level 4.5 g/dl (3.5-5.0); Chloride 107 mmol/L (98-107); Potassium 3.8 mmoL/L (3.5-5.1); Sodium 136 mmol/L (136-145)
[2024-05-17 02:26] LABS: Adenovirus F 40/41, stool Not Detected (NotDetected); Astrovirus Not Detected (NotDetected); Clostridium Difficile A/B, PCR Not Detected (NotDetected); Coronavirus 19, PCR Not Detected (NotDetected); Cryptosporidium Not Detected (NotDetected); Cyclospora Cayetanesis Not Detected (NotDetected); Entamoeba histolytica Not Detected (NotDetected); Enteroaggregative E coli Not Detected (NotDetected); Enterotoxigenic E coli Not Detected (NotDetected); Giardia lamblia Not Detected (NotDetected); Influenza A, PCR Not Detected (NotDetected); Influenza B, PCR Not Detected (NotDetected); Norovirus Not Detected (NotDetected); Plesimonas Shigalloides, PCR Not Detected (NotDetected); Rotavirus A Not Detected (NotDetected); Salmonella, PCR Not Detected (NotDetected); Sapovirus Not Detected (NotDetected); Shiga-like toxin E coli Not Detected (NotDetected); Shigella Enterovasive E coli Not Detected (NotDetected); Vibrio Cholerae Not Detected (NotDetected); Vibrio, PCR Not Detected (NotDetected); Yersinia Entercolitica, PCR Not Detected (NotDetected)
[2024-05-17 02:29] LABS: Alanine Aminotransferase 29 U/L (12-78); Albumin/Globulin Ratio 1.8 (1.1-1.8); Alkaline Phosphatase 100 U/L (38-126); Anion Gap 12.8 mEq/L (5-15); Aspartate Amino Transferase 24 U/L (14-36); Bilirubin,Total 0.5 mg/dl (0.2-1.3); Blood Urea Nitrogen 8 mg/dl (7-17); Calcium 9.3 mg/dl (8.4-10.2); Carbon Dioxide 20 mmol/L (22.0-30.0); Creatinine Clearance Estimated 142 mL/min (50-200); Estimated Glomerular Filt Rate 90 ml/min (>60); GFR (African American) 109 ML/MIN (>60); Globulin 2.5 g/dL (1.3-3.2); Glucose 145 mg/dl (74-100)
[2024-05-17 02:40] LABS: HCG Qualitative, Serum Negative (Negative)
[2024-05-17] MEDS: IOPAMIDOL-370 (76%);100ML BOTTLE 75 ML IV (03:01)
[2024-05-17] MEDS: SODIUM CHLORIDE 0.9% 10ML SYR (RAD ONLY) 10 ML IV (03:02)
[2024-05-17 03:18] LABS: Lymphocytes % 13 % (10-50); Monocytes % 5 % (2-9); Neutrophils % 82 % (42-76); Total Cells Counted 100
[2024-05-17 03:19] LABS: RBC Morphology Normal
[2024-05-17 03:20] LABS: Platelet Estimate Normal
[2024-05-17 04:29] LABS: Campylobacter Detected (NotDetected); Enteropathogenic E coli Detected (NotDetected)
[2024-05-17] MEDS: levoFLOXacin 500MG TAB 500 MG PO (04:35)
== END 2024-05-17 04:44 | disposition home or self-care (01) ==
PROVIDERS: Emergency Provider Emergency Medicine; PCP Nurse Practitioner Family
DX: A04.5 Campylobacter enteritis (principal); A04.0 Enteropathogenic Escherichia coli infection; A08.8 Other specified intestinal infections; R10.11 Right upper quadrant pain; R19.7 Diarrhea, unspecified
CPT/HCPCS: 74177; 80053; 83605; 84703; 85007; 85025; 85027; 87506; 87636; 96361; 96374; 99285; J1885; J7120; Q9967

== ENCOUNTER 2025-08-08 17:09 | Emergency (ER) | payer OTHER, SELFPAY ==
[2025-08-08 17:18] VITALS: BP 129/85; PULSE 90; RESP 16; TEMP 36.9; O2SAT 99; BMI 33.3
[2025-08-08 17:31] VITALS: BP 122/81; PULSE 78; O2SAT 95
--- NOTE | 2025-08-08 17:38 | CT_ITS ---
PROCEDURE INFORMATION: Exam: CT Abdomen And Pelvis With Contrast Exam date and time: 08/08/2025 6:21 PM Age: 50 years old Clinical indication: Abdominal pain; Additional info: Diverticulitis HX, lower abd pain TECHNIQUE: Imaging protocol: Computed tomography of the abdomen and pelvis with contrast. Radiation optimization: All CT scans at this facility use at least one of these dose optimization techniques: automated exposure control; mA and/or kV adjustment per patient size (includes targeted exams where dose is matched to clinical indication); or iterative reconstruction. Contrast material: ISOVUE; Contrast volume: 75 ml; Contrast route: IV; COMPARISON: CT ABDOMEN PELVIS W CON 05/17/2024 2:47 AM FINDINGS: Lungs: Lung bases are clear. Liver: Liver is enlarged measuring 18 cm. The liver is otherwise unremarkable. Gallbladder and biliary ducts: Cholecystectomy. There is no evidence of biliary ductal dilation. Pancreas: Pancreas has a normal size and parenchymal morphology. No masses, ductal dilation, or peripancreatic inflammation/free fluid. Spleen: Spleen has a normal size and morphology. No masses. Adrenal glands: Stable 2 cm left adrenal nodule since May 2023. No follow-up is necessary. (Reference: Bhavik). Adrenal glands are otherwise unremarkable. Kidneys and ureters: Kidneys have a normal size and morphology with normal corticomedullary differentiation. No solid masses or hydronephrosis. No large stones. No hydroureter. Stomach and bowel: Mild focal wall thickening at the sigmoid/descending colon with associated inflamed diverticula and pericolonic inflammation. No pericolonic fluid collections. Diffuse colonic diverticulosis. No other bowel wall thickening. There is no evidence of intestinal obstruction. The stomach is normal. Duodenum is unremarkable. Appendix: A normal appendix is identified. Intraperitoneal space: Trace free fluid in the cul-de-sac, either physiologic or reactive. No intraperitoneal fluid collections. There is no free intraperitoneal air. Vasculature: Portal venous system is patent. Mild atherosclerotic calcification of the arterial vasculature. No aortic aneurysm. Lymph nodes: Several minimally prominent mesenteric root lymph nodes, though not concerning by size criteria. They are most likely reactive. No other adenopathy. Urinary bladder: Bladder is decompressed and difficult to evaluate. Reproductive: Reproductive organs are unremarkable as visualized. Bones/joints: No acute skeletal abnormality or aggressive osseous lesion. Soft tissues: No acute soft tissue findings. IMPRESSION: Mild acute uncomplicated diverticulitis. REFERENCES: Sullivan-Mitchell WW, et al. Management of Incidental Adrenal Masses: A White Paper of the ACR Incidental Findings Committee. J Am Kaci Radiol. 2017;14(8):2254-4468.
[2025-08-08 17:45] LABS: Hematocrit 36.1 % (37.0-47.0); Hemoglobin 12.2 g/dL (12.2-16.2); Immature Granulocytes % 0.3 %; Mean Corpuscular HGB Conc 33.8 g/dL (31.8-35.4); Mean Corpuscular Hemoglobin 27.9 pg (27.0-31.2); Mean Corpuscular Volume 82.6 fl (81-99); Nucleated Red Blood Cells % 0 %; Platelet Count 261 K/mm3 (142-424); Red Blood Count 4.37 M/mm3 (4.20-5.40); Red Cell Distribution Width-SD 37.4 fL; White Blood Count 7.0 K/mm3 (4.8-10.8)
[2025-08-08] MEDS: 0.9 % SODIUM CHLORIDE 1000ML 500 ML 999 ML IV (17:55)
[2025-08-08] MEDS: ONDANSETRON 4MG/2ML VIAL 4 MG IV (17:56)
[2025-08-08 18:01] VITALS: BP 117/69; PULSE 71; O2SAT 98
[2025-08-08 18:03] LABS: Albumin Level 4.0 g/dl (3.5-5.0); Chloride 103 mmol/L (98-107); Potassium 3.5 mmoL/L (3.5-5.1); Sodium 136 mmol/L (136-145)
[2025-08-08 18:06] LABS: Alanine Aminotransferase 20 U/L (12-78); Albumin/Globulin Ratio 1.5 (1.1-1.8); Alkaline Phosphatase 89 U/L (38-126); Anion Gap 10.5 mEq/L (5-15); Aspartate Amino Transferase 18 U/L (14-36); Bilirubin,Total 0.4 mg/dl (0.2-1.3); Blood Urea Nitrogen 9 mg/dl (7-17); Carbon Dioxide 26 mmol/L (22.0-30.0); Creatinine Clearance Estimated 164 mL/min (50-200); Creatinine,Serum 0.60 mg/dl (0.52-1.04); Estimated Glomerular Filt Rate 107 ml/min (>60); GFR (African American) 129 ML/MIN (>60); Globulin 2.6 g/dL (1.3-3.2); Lipase 46 U/L (23-300); Total Protein,Serum 6.6 g/dl (6.3-8.2)
[2025-08-08 18:07] LABS: Calcium 8.7 mg/dl (8.4-10.2); Glucose 100 mg/dl (74-100)
[2025-08-08 18:18] LABS: Microscopic, Urine URINE MICROSCOPIC (MICROSCOPIC)
[2025-08-08 18:20] LABS: Color,Urine YELLOW (Yellow); Glucose,Urine (UA) Negative (Negative); Ketones,Urine 2+ (Negative); Leukocyte Esterase,Urine Negative (Negative); PH,Urine 6.0 (5.0-8.5); Protein,Urine Negative (Negative); Specific Gravity, Urine 1.025 (1.005-1.030); Urobilinogen,Urine 0.2 EU/dl (0.2)
[2025-08-08] MEDS: IOPAMIDOL-370 (76%);100ML BOTTLE 75 ML IV (18:24)
[2025-08-08] MEDS: SODIUM CHLORIDE 0.9% 10ML SYR (RAD ONLY) 10 ML IV (18:24)
[2025-08-08 18:30] LABS: Bilirubin,Urine 1+ (Negative)
[2025-08-08 18:52] LABS: Bacteria,Urine 2+ /lpf
--- NOTE | 2025-08-08 18:59 | ED_ITS ---
<Statement entered by Nitin Malave MD - 08/09/25 02:15> I was consulted by the GUALBERTO, and we discussed the complexity of the problems being addressed. I approve the treatment and management plan for this patient's care in the emergency department, thus performing a substantive portion of the medical decision making. Nitin Malave MD Discharge Plan Disposition Patient Disposition: Home, Self-Care Condition: Good Prescriptions Prescriptions: New amoxicillin-pot clavulanate 875-125 mg tablet 1 tab PO Q12H Qty: 20 0RF ondansetron 4 mg tablet,disintegrating 4 mg PO Q8H 3 Days Qty: 9 0RF No Action ondansetron 4 mg tablet,disintegrating 4 mg PO Q8H PRN (Reason: nausea and vomiting) 4 Days Qty: 12 0RF naproxen 500 mg tablet 500 mg PO BID PRN (Reason: pain) Qty: 20 0RF oxycodone 5 mg tablet 5 mg PO Q8H PRN (Reason: pain) Qty: 10 0RF levofloxacin 500 mg tablet 500 mg PO DAILY 5 Days Qty: 5 0RF Referrals Follow up/Referrals: Rosie Rodriguez [Primary Care Provider, Medical] - See instructions Activity Restrictions/Add. Instructions Additional Instructions/Restrictions: You were seen for diverticulitis. Take your antibiotics and follow up with your PCP and GI doctor. Return to ED for worsening symptoms. You had some spots on your adrenal glands which have not change in 2 years. Discuss this with your PCP as well. Clinical Impressions Clinical Impression: Diverticulitis Instructions Patient Instructions: DI for Acute Abdominal Pain Print Language Print Language: Ivorian Discharge ED Provider: Nitin Malave General Adult HPI General Chief complaint: Abdominal Pain Stated complaint: abdominal pain x 5 Time Seen by Provider: 08/08/25 17:15 Mode of Arrival: Ambulatory Source of Information: Patient Description of Symptoms (Recalled from ER Triage Doc. by RN): Patient states she thinks she is having a diverticulitis flare up, states she has been having lower abdominal pain and cramping since Sunday08/04/25. Patient has been eating and drinking. History of Present Illness HPI narrative: Patient presents complaining of lower abdominal pain. She reports a history of diverticulitis. She reports the pain is ache with intermittent sharp pain. She reports that has been ongoing for 3 days. She has an clear liquid diet for several days without improvement. She has nausea without vomiting. She does report nonbloody, watery diarrhea. Denies any fever MD complaint: lower abdominal pain Onset (ago): day(s) (5) Location: abdomen Radiation: non-radiation Severity: moderate Quality: aching and sharp Consistency: constant Relieving factors: none Exacerbating factors: none Associated symptoms: other (diarrhea) Treatments prior to arrival: other (clear liquid diet ) Related Data Previous Rx's ?Medication ?Instructions ?Recorded naproxen 500 mg tablet 500 mg PO BID PRN pain #20 t abs 06/11/23 ondansetron 4 mg disintegrating 4 mg PO Q8H PRN nausea and 06/11/23 tablet vomiting 4 days #12 tabs oxycodone 5 mg tablet 5 mg PO Q8H PRN pain #10 tab s 06/11/23 levofloxacin 500 mg tablet 500 mg PO DAILY 5 days #5 t abs 05/17/24 amoxicillin 875 mg-potassium 1 tab PO Q12H #20 tabs clavulanate 125 mg tablet ondansetron 4 mg disintegrating 4 mg PO Q8H 3 days #9 tabs 08/08/25 tablet Allergies Allergy/AdvReac Type Severity Reaction Status Date / Time cephalexin (CEPHALEXIN) Allergy Mild Unknown Verified 08/08/25 17:22 allergy reaction From KEFLEX Allergy Unknown Unknown Uncoded 08/08/25 17:22 [facility] Disclaimer: The information contained in this section may have been updated after the patient was seen, as this information can be updated by other users. Social History Smoking Status: Current every day smoker alcohol intake: never current occupational status: employed Travel in the last 8 weeks?: None caffeine: Yes Have you lived/traveled outside [place] in past 30 days?: No Contact w/someone who lives/traveled outside [place] past 30 days?: No Exposure to someone with infectious disease in past 14 days?: No Do you have a fever (greater than 100.4 F or 38 C)?: No Have you tested positive for COVID-19?: No Exposed to someone with COVID-19 in past 14 days?: No Do you have a sore throat?: No Do you have a cough?: No Do you have any weakness?: No Do you have any diarrhea?: No Are you experiencing any unusual bleeding?: No Do you have any muscle aches/pain?: No Do you have any abdominal pain?: No Are you experiencing loss of taste or smell?: No Other Medical History Have you received the Pneumonia Vaccine: No ROS Obtained: Yes Systems reviewed as appropriate & no additional complaints except as documented Physical Exam General General appearance: alert and in no apparent distress Head Head exam: atraumatic and normocephalic Eye Eye exam: Present normal appearance and EOMI Chest Chest inspection: Present symmetric chest wall rise Respiratory Respiratory exam: Present normal lung sounds bilaterally; Absent wheezes or stridor Cardiovascular Cardiovascular exam: Present regular rate and normal rhythm; Absent systolic murmur Abdominal Exam Abdominal exam: Present soft; Absent distention Abdominal tenderness: Present RLQ and LLQ Extremities Exam Extremities exam: Present full ROM Neurological Exam Neurological exam: Present alert and oriented X3 Psychiatric Psychiatric exam: Present normal affect and normal mood Skin Skin exam: Present warm, dry and intact Medical Decision Making Medical Records Screening: Per USPSTF and CDC recommendations, given the prevalence of disease in our region, it is our hospital?s policy to screen for HIV and viral Hepatitis for all patients aged 18 and over and those with ongoing risk factors. Julius Inquiry Pt receiving controlled substance: No Vital Signs: 08/08/25 17:18 08/08/25 17:31 08/08/25 18:01 Temperature 98.5 F Temperature Source Oral Pulse Rate 78 71 Pulse Rate [Left Brachial] 90 Respiratory Rate 16 Blood Pressure 122/81 117/69 Blood Pressure [Left Arm] 129/85 Blood Pressure Mean [Left Arm] 99 Blood Pressure Source [Left Arm] Automatic Cuff Blood Pressure Position [Left Arm] Sitting 02 Sat by Pulse Oximetry 99 95 98 Oxygen Delivery Method Room Air Room Air Room Air 08/08/25 19:48 Temperature 98.2 F Temperature Source Pulse Rate 68 Pulse Rate [Left Brachial] Respiratory Rate 20 Blood Pressure 128/78 Blood Pressure [Left Arm] Blood Pressure Mean [Left Arm] Blood Pressure Source [Left Arm] Blood Pressure Position [Left Arm] 02 Sat by Pulse Oximetry Oxygen Delivery Method Room Air Lab Data Lab Results 08/08/25 17:37: WBC 7.0, RBC 4.37, Hgb 12.2, Hct 36.1 L, MCV 82.6, MCH 27.9, MCHC 33.8, RDW 12.3, Plt Count 261, MPV 10.9 H, Neut % (Auto) 56.9, Lymph % (Auto) 34.2, [place] % (Auto) 5.6, Eos % (Auto) 2.4, Baso % (Auto) 0.6, Neut # (Auto) 4.0, Lymph # (Auto) 2.4, [place] # (Auto) 0.4, Eos # (Auto) 0.2, Baso # (Auto) 0.0, Sodium 136, Potassium 3.5, Chloride 103, Carbon Dioxide 26, Anion Gap 10.5, BUN 9, Creatinine 0.60, Estimated Creat Clear 164, Estimated GFR 107, Est GFR ( Amer) 129, Glucose 100, Calcium 8.7, Total Bilirubin 0.4, AST 18, ALT 20, Alkaline Phosphatase 89, Total Protein 6.6, Albumin 4.0, Globulin 2.6, Albumin/Globulin Ratio 1.5, Lipase 46 08/08/25 18:08: Urine Color Yellow, Urine Appearance Clear, Urine pH 6.0, Ur Specific Benjamin 1.025, Urine Protein Negative, Urine Glucose (UA) Negative, Urine Ketones 2+, Urine Blood Negative, Urine Nitrate Negative, Urine Bilirubin 1+ A, Urine Urobilinogen 0.2, Ur Leukocyte Esterase Negative, Urine RBC None, Urine WBC 3-5, Ur Squamous Epith Cells 3-5, Urine Bacteria 2+ 08/08/25 17:37 08/08/25 17:37 Orders (Tests/Meds): ED MEDICATIONS Discontinued Medications Generic Name Dose Route Start Last Admin Trade Name Kylah PRN Reason Stop Dose Admin Sodium Chloride 500 mls @ 999 mls/hr 08/08/25 17:38 08/08/25 17:55 Sod Chlor 0.9% 1000ml Bag IV 08/08/25 18:08 999 mls/hr .Q31M ONE Administration Iopamidol 75 ml 08/08/25 18:23 08/08/25 18:24 Iopamidol-370 (76%);100ml Bottle IV 08/08/25 18:24 75 ml ONCE ONE Administration Ondansetron HCl 4 mg 08/08/25 17:38 08/08/25 17:56 Ondansetron 4mg/2ml Vial IV 08/08/25 17:39 4 mg ONCE ONE Administration Sodium Chloride 10 ml 08/08/25 17:38 Sodium Chloride 0.9% 10ml Flush Syringe IV 09/07/25 17:37 NEEDED PRN Maintain IV Site Sodium Chloride 10 ml 08/08/25 18:23 08/08/25 18:24 Sodium Chloride 0.9% 10ml Syr (Rad Only) IV 09/07/25 18:22 10 ml NEEDED PRN Administration Maintain IV Site ORDERS Category Date Time Status CT abdomen pelvis w con Stat Cat Scan 08/08/25 17:38 Completed CBC w/Auto Diff [Complete Blood Count Auto Diff] Stat Lab 08/08/25 17:37 Completed CMP [Comprehensive Metabolic Panel] Stat Lab 08/08/25 17:37 Completed Lipase Stat Lab 08/08/25 17:37 Completed Urinalysis and Microscopic Stat Lab 08/08/25 18:08 Completed Urine Culture Stat Micro 08/08/25 18:08 Received Medical Decision Narrative: In summary patient is a 50-year-old female who presents the emergency department for evaluation of abdominal pain. Patient is hemodynamically stable upon arrival, afebrile. Bilateral lower abdominal tenderness. Differential diagnosis includes diverticulitis, UTI, appendicitis. Initial workup will be conducted with CT abdomen pelvis, hematologic labs. Initial inventions include IV fluids, Zofran. Initial workup reviewed by ak CT reveals mild diverticulitis. Upon repeat evaluation patient has had acceptable resolution of symptoms. Given this started on Augmentin and advised to follow-up with GI. Critical Care Critical Care Time Critical Care Time: No
[2025-08-08 19:48] VITALS: BP 128/78; PULSE 68; RESP 20; TEMP 36.8; O2SAT 98
== END 2025-08-08 19:53 | disposition home or self-care (01) ==
PROVIDERS: Physician Assistant; Emergency Provider Student in an Organized Health Care Education/Training Program; PCP Nurse Practitioner Family
DX: R10.31 Right lower quadrant pain (principal); R10.32 Left lower quadrant pain; K57.32 Diverticulitis of large intestine without perforation or abscess without bleeding; R11.0 Nausea; R19.7 Diarrhea, unspecified
CPT/HCPCS: 74177; 80053; 81001; 83690; 85025; 87086; 96374; 99284; J2405; J7030; Q9967